=== PATIENT | female | born 1980 | race Two or more races ===

== ENCOUNTER 2023-03-18 11:06 | Emergency (ER) | payer OTHER ==
[~2023-03-18] VITALS: Ht 162.6 cm; Wt 98.9 kg
[2023-03-18] MEDS ORDERED: TYLENOL ARTHRI650 MG PO (14:13)
[2023-03-18] MEDS ORDERED: METAXALONE800 MG PO (14:13)
[2023-03-18] MEDS ORDERED: CELEBREX200MG PO (14:13)
== END 2023-03-18 14:20 | disposition home or self-care (01) ==
LOC: ER 11:06
DX: S13.4XXA Sprain of ligaments of cervical spine, initial encounter (principal); V49.9XXA Car occupant (driver) (passenger) injured in unspecified traffic accident, initial encounter; Y93.89 Activity, other specified; Y92.89 Other specified places as the place of occurrence of the external cause; Y99.8 Other external cause status